=== PATIENT | female | born 1965 | race Caucasian/White ===

== ENCOUNTER → 2016-12-15 | Outpatient (CLI) | payer OTHER ==
[~2016-12-15] MED LIST: CEPH500T PO; GLUCTAB PO; SYNT200T PO
[2016-12-15 14:22] LABS: AUTOMATED NEUTROPHIL # 5.5 TH/MM3 (1.8-7.7); BASOPHIL # 0.1 TH/MM3 (0-0.2); BASOPHIL % 1.1 % (0.0-2.0); EOSINOPHIL # 0.1 TH/MM3 (0-0.4); EOSINOPHIL % 1.2 % (0.0-4.0); HEMATOCRIT 36.8 % (35.0-46.0); HEMO FLAGS DIFF FINAL; LYMPH % 26.1 % (9.0-44.0); LYMPHOCYTE # 2.2 TH/MM3 (1.0-4.8); MEAN CORPUSCULAR HEMOGLOBIN 29.1 PG (27.0-34.0); MEAN CORPUSCULAR HGB CONC 33.1 % (32.0-36.0); MONO % 6.6 % (0.0-8.0); PLATELET COUNT 216 TH/MM3 (150-450); RED BLOOD COUNT 4.19 MIL/MM3 (4.00-5.30); RED CELL DISTRIBUTION WIDTH 13.8 % (11.6-17.2); WHITE BLOOD COUNT 8.5 TH/MM3 (4.0-11.0)
[2016-12-15 14:50] LABS: ALT (GPT) 25 U/L (10-53); ANION GAP 5 MEQ/L (5-15); AST (GOT) 23 U/L (15-37); BICARBONATE 33.2 MEQ/L (21.0-32.0); BLOOD UREA NITROGEN 7 MG/DL (7-18); CHLORIDE 99 MEQ/L (98-107); GLOMERULAR FILTRATION RATE 65 ML/MIN (>89); GLUCOSE,FASTING 124 MG/DL (74-99); SODIUM (NA) 137 MEQ/L (136-145)
[2016-12-15 14:59] LABS: ALKALINE PHOSPHATASE 93 U/L (45-117); FREE T4 0.27 NG/DL (0.76-1.46); HDL CHOLESTEROL 39.7 MG/DL (40.0-60.0); LDL CHOLESTEROL 165 MG/DL (0-99); TOTAL BILIRUBIN ADULT 0.5 MG/DL (0.2-1.0)
[2016-12-15 16:23] LABS: HEMOGLOBIN A1a 1.3 %; HEMOGLOBIN A1b 1.7 %; HEMOGLOBIN Ao 83.8 %; HEMOGLOBIN LA1C 2.1 %; HEMOGLOBIN P3 3.6 %
== END ==
LOC: CLAB 14:01
PROVIDERS: ATTEND Family Medicine
DX: E87.2 Acidosis (principal); E11.9 Type 2 diabetes mellitus without complications; E03.9 Hypothyroidism, unspecified; K21.0 Gastro-esophageal reflux disease with esophagitis
CPT/HCPCS: 36415; 80053; 80061; 83036; 84439; 84443; 85025

== ENCOUNTER → 2017-05-18 | Outpatient (CLI) | payer OTHER ==
[2017-05-18 09:48] LABS: AUTOMATED NEUTROPHIL # 2.9 TH/MM3 (1.8-7.7); BASOPHIL # 0.1 TH/MM3 (0-0.2); BASOPHIL % 0.9 % (0.0-2.0); EOSINOPHIL # 0.2 TH/MM3 (0-0.4); EOSINOPHIL % 3.1 % (0.0-4.0); HEMATOCRIT 37.7 % (35.0-46.0); HEMO FLAGS DIFF FINAL; LYMPH % 41.6 % (9.0-44.0); LYMPHOCYTE # 2.5 TH/MM3 (1.0-4.8); MEAN CELL VOLUME 81.1 FL (80.0-100.0); MEAN CORPUSCULAR HEMOGLOBIN 26.8 PG (27.0-34.0); MEAN CORPUSCULAR HGB CONC 33.1 % (32.0-36.0); MONO % 6.6 % (0.0-8.0); NEUT % 47.8 % (16.0-70.0); PLATELET COUNT 247 TH/MM3 (150-450); RED BLOOD COUNT 4.65 MIL/MM3 (4.00-5.30)
[2017-05-18 10:47] LABS: ANION GAP 9 MEQ/L (5-15); AST (GOT) 30 U/L (15-37); BICARBONATE 27.5 MEQ/L (21.0-32.0); BLOOD UREA NITROGEN 9 MG/DL (7-18); CHLORIDE 100 MEQ/L (98-107); GLOMERULAR FILTRATION RATE 75 ML/MIN (>89); GLUCOSE,FASTING 292 MG/DL (74-99); POTASSIUM 3.8 MEQ/L (3.5-5.1); SODIUM (NA) 136 MEQ/L (136-145)
[2017-05-18 10:59] LABS: ALKALINE PHOSPHATASE 170 U/L (45-117); ALT (GPT) 31 U/L (10-53); FREE T4 1.85 NG/DL (0.76-1.46); HDL CHOLESTEROL 38.3 MG/DL (40.0-60.0); LDL CHOLESTEROL 109 MG/DL (0-99); TOTAL BILIRUBIN ADULT 0.5 MG/DL (0.2-1.0)
[2017-05-18 12:27] LABS: HEMOGLOBIN A1a 0.9 %; HEMOGLOBIN A1b 2.8 %; HEMOGLOBIN Ao 75.8 %; HEMOGLOBIN LA1C 3.3 %; HEMOGLOBIN P3 4.9 %
== END ==
LOC: CLAB 09:10
PROVIDERS: ATTEND Family Medicine
DX: E11.9 Type 2 diabetes mellitus without complications (principal); E78.2 Mixed hyperlipidemia; E03.9 Hypothyroidism, unspecified
CPT/HCPCS: 36415; 80053; 80061; 83036; 84439; 84443; 85025

== ENCOUNTER 2017-06-26 14:20 | Emergency (ER) | payer OTHER ==
[~2017-06-26] VITALS: Ht 170.2 cm; Wt 80.0 kg
[2017-06-26 14:21] VITALS: BP 148/72; PULSE 81; RESP 18; TEMP 97.6; O2SAT 100
--- NOTE | 2017-06-26 16:05 | RADRPT ---
EXAM DATE/TIME: 06/26/2017 15:17 [place] COMPARISON: No previous studies available for comparison. INDICATIONS : Right third digit swelling MEDICAL HISTORY : None. SURGICAL HISTORY : None. ENCOUNTER: Initial ACUITY: 1 day PAIN SCORE: 8/10 LOCATION: Right upper extremity FINDINGS: There is soft tissue swelling distally of the long finger, appears to mostly be centered around the n ail. No fracture, subluxation or significant arthropathy demonstrated. No evidence of acute bone dest ruction. No radiopaque foreign body seen. CONCLUSION: Long finger distal soft tissue swelling without bony abnormality. Dion Escamilla MD on June 26, 2017 at 16:02 Board Certified Radiologist. This report was verified electronically.
[2017-06-26] MEDS ORDERED: CEPH-460 PO (17:26)
[2017-06-26] MEDS ORDERED: BACT800T5 PO (17:26)
--- NOTE | 2017-06-26 17:27 | PD ---
HPI Chief Complaint: Skin Problem Time Seen by Provider: 17:03 Travel History International Travel<30 days: No Contact w/Intl Traveler<30days: No Traveled to known affect area: No History of Present Illness HPI 52-year-old female with history of diabetes here for evaluation of right third finger pain and swelling possible infection. The patient reports that she reached under her car seat about 2 days ago and felt something poke her right third finger. She states that last night she noticed increased pain and swelling which persisted throughout the day today along with redness. She denies fevers or chills. Pain is moderate, constant, throbbing, worse with palpation and movements. PFSH Past Medical History Arthritis: Yes Asthma: No Autoimmune Disease: No Blood Disorders: No Anxiety: No Depression: No Heart Rhythm Problems: No Cancer: No High Cholesterol: No Chemotherapy: No Chest Pain: No Congestive Heart Failure: No COPD: No Cerebrovascular Accident: No Diabetes: Yes Diminished Hearing: No GERD: Yes Glaucoma: No Headaches: Yes Hepatitis: No Hiatal Hernia: Yes (SMALL) Hypertension: No Kidney Stones: No Musculoskeletal: Yes Immunizations Current: No Myocardial Infarction: No Radiation Therapy: No Renal Failure: No Seizures: No Sleep Apnea: No Thyroid Disease: Yes (HYPO) Ulcer: No Menopausal: Yes Past Surgical History Abdominal Surgery: Yes AICD: No Cholecystectomy: Yes Gynecologic Surgery: Yes Pacemaker: No Tonsillectomy: Yes Other Surgery: Yes Social History Alcohol Use: No Tobacco Use: No Substance Use: No Allergies-Medications (Allergen,Severity, Reaction): Coded Allergies: celecoxib (Unverified Adverse Reaction, Severe, UPSET STOMACH, 04/05/17) Reported Meds & Prescriptions Reported Meds & Active Scripts Active Review of Systems Except as stated in HPI: all other systems reviewed are Neg Physical Exam Narrative GENERAL: Well-developed, well-nourished, comfortable, no apparent distress. SKIN: Right third distal finger with moderate edema, warmth, and erythema around the nail consistent with paronychia. There are no red streaks. No [place] signs. Normal range of motion in right third finger. Normal capillary refill in this finger. CARDIOVASCULAR: Regular rate and rhythm. RESPIRATORY: No accessory muscle use. MUSCULOSKELETAL: Skin exam as above. PSYCHIATRIC: Appropriate mood and affect; insight and judgment normal. Data Data Last Documented VS Vital Signs Date Time Temp Pulse Resp B/P (MAP) Pulse Ox O2 Delivery O2 Flow Rate FiO2 06/26/17 14:21 97.6 81 18 148/72 (97) 100 Room Air Orders Orders Hand, Complete ([id number]) (06/26/17 ) Wound Culture And Gram Stain (06/26/17 17:18) Sulfamet-Trimeth Ds 800-160 Mg (Bactrim (06/26/17 17:30) Cephalexin (Keflex) (06/26/17 17:30) MDM Medical Decision Making Medical Screen Exam Complete: Yes Emergency Medical Condition: Yes Differential Diagnosis Parosusana, robin Narrative Course This is a 52-year-old female with history of diabetes who presents with a paronychia to her right third finger. I&D was performed with scant amount of purulent drainage which was sent for culture and sensitivity. Right third finger x-ray shows soft tissue swelling at the distal finger without radiopaque foreign body seen. She will be started on Bactrim and Keflex. I will give her the name of the hand surgeon with whom to follow up with this week. She was informed on when to return to the emergency department. She verbalizes understanding and agreement with plan. Procedures Procedure Narrative Incision and drainage of right third finger paronychia: Ethyl chloride used for topical/local anesthesia. Finger prepped with ChloraPrep. Using an 11 blade, nail was from eponychial fold, and a scant amount of purulent drainage was expressed. Sample sent for culture and sensitivity. Tolerated well. No complications. Diagnosis Primary Impression: Paronychia of right middle finger Referrals: Siobhan Campbell MD 3 days Additional Instructions: Follow-up with hand surgeon Dr. Campbell this week. Take antibiotics as prescribed. Return to the emergency department for worsening symptoms or any other concerns. Scripts Cephalexin (Keflex) 500 Mg Cap 500 MG PO Q8H for Infection, #30 CAP 0 Refills Prov: Augustin Lizama MD 06/26/17 Sulfamethoxazole-Trimethoprim (Bactrim DS) 800-160 Mg Tab 1 TAB PO BID for Infection, #20 TAB 0 Refills Prov: Augustin Lizama MD 06/26/17 Disposition: 01 DISCHARGE HOME Condition: Stable Augustin Lizama MD Jun 26, 2017 17:27
[2017-06-26] MEDS ORDERED: CEPHALEXIN MONOHYDRATE 500 MG CAP PO ONE (17:30)
[2017-06-26] MEDS ORDERED: SULFAMETHOXAZOLE-TRIMETHOPRIM DS 800-160 MG TAB PO ONE (17:30)
== END 2017-06-26 17:54 | disposition home or self-care (01) ==
LOC: NEPD 14:20
DX: L03.011 Cellulitis of right finger (principal); B96.4 Proteus (mirabilis) (morganii) as the cause of diseases classified elsewhere; E11.9 Type 2 diabetes mellitus without complications; M19.90 Unspecified osteoarthritis, unspecified site; K21.9 Gastro-esophageal reflux disease without esophagitis; E03.9 Hypothyroidism, unspecified
CPT/HCPCS: 10060; 73130; 87070; 87077; 87185; 87186; 87205

== ENCOUNTER → 2017-09-13 | Outpatient (CLI) | payer OTHER ==
[~2017-09-13] MED LIST changes: +BACT800T5 PO; +CEPH-460 PO; -CEPH500T PO; -GLUCTAB PO; -SYNT200T PO
[2017-09-13 14:07] LABS: ALBUMIN 3.9 GM/DL (3.4-5.0); AST (GOT) 15 U/L (15-37); BLOOD UREA NITROGEN 8 MG/DL (7-18); CALCIUM 9.1 MG/DL (8.5-10.1); CHLORIDE 108 MEQ/L (98-107); CREATININE 0.71 MG/DL (0.50-1.00); GLOMERULAR FILTRATION RATE 86 ML/MIN (>89); GLUCOSE,FASTING 90 MG/DL (74-99); SODIUM (NA) 142 MEQ/L (136-145)
[2017-09-13 14:08] LABS: ALT (GPT) 25 U/L (10-53); CHOLESTEROL 129 MG/DL (120-200)
[2017-09-13 14:16] LABS: ALKALINE PHOSPHATASE 137 U/L (45-117); CHOLESTEROL/ HDL RATIO 3.67 RATIO; FREE T4 0.27 NG/DL (0.76-1.46); HDL CHOLESTEROL 35.1 MG/DL (40.0-60.0); LDL CHOLESTEROL 79 MG/DL (0-99); TOTAL BILIRUBIN ADULT 0.2 MG/DL (0.2-1.0); TOTAL PROTEIN 7.3 GM/DL (6.4-8.2); TRIGLYCERIDES 77 MG/DL (42-150)
== END ==
LOC: CLAB 13:27
PROVIDERS: ATTEND Family Medicine
DX: E11.9 Type 2 diabetes mellitus without complications (principal); E03.9 Hypothyroidism, unspecified; E78.2 Mixed hyperlipidemia; K21.0 Gastro-esophageal reflux disease with esophagitis; G43.009 Migraine without aura, not intractable, without status migrainosus
CPT/HCPCS: 36415; 80053; 80061; 84439; 84443